=== PATIENT | female | born 1970 ===

== ENCOUNTER 2021-11-01 20:41 | Emergency (ER) | payer BC ==
[2021-11-01 21:16] VITALS: BP 148/77
[2021-11-01 21:43] LABS: Hematocrit 31.9 % (30.3-42.9); Hemoglobin 10.5 gm/dl (10.1-14.3); Mean Corpuscular HGB Conc 33 % (30-34); Mean Corpuscular Volume 80 fl (79-97); Platelet Count 303 K/mm3 (140-440); Red Blood Count 3.99 M/mm3 (3.65-5.03); Red Cell Distribution Width 16.6 % (13.2-15.2)
[2021-11-01 21:48] LABS: Basophils % (Auto) 0.2 % (0.0-1.8); Eosinophils % (Auto) 0.1 % (0.0-4.3); Lymphocytes # (Auto) 1.9 K/mm3 (1.2-5.4); Lymphocytes % (Auto) 21.1 % (13.4-35.0); Monocytes # (Auto) 0.7 K/mm3 (0.0-0.8); Monocytes % (Auto) 8.1 % (0.0-7.3)
[2021-11-01 22:13] LABS: Alanine Aminotransferase 13 units/L (7-56); Albumin 4.3 g/dL (3.9-5); BUN/Creatinine Ratio 20; Blood Urea Nitrogen 16 mg/dL (7-17); Calcium 9.4 mg/dL (8.4-10.2); Hemolysis Index 30
[2021-11-02 00:31] LABS: Bilirubin,Urine NEG (Negative); Blood,Urine NEG (Negative); Color,Urine Yellow (Yellow); Mucus,Urine FEW /HPF; Protein,Urine <15 mg/dL mg/dL (Negative); Urobilinogen,Urine < 2.0 mg/dL (<2.0)
[2021-11-02] MEDS ORDERED: KETOROLAC 30 MG/1 ML INJ IV ONE (03:24)
[2021-11-02] MEDS ORDERED: SODIUM CHLORIDE 0.9% 1000 ML 1,000 ML IV ONE (03:24)
[2021-11-02] MEDS ORDERED: ONDANSETRON 4 MG/2 ML INJ IV ONE (03:24)
--- NOTE | 2021-11-02 03:26 | Emergency Department Report ---
ED Abdominal Pain HPI - General Chief Complaint: Abdominal Pain Stated Complaint: LEFT SIDE PAIN Source: patient Mode of arrival: Ambulatory Limitations: No Limitations - Related Data Previous Rx's Medication Instructions Recorded Last Taken Type Ciprofloxacin HCl 500 mg PO BID 7 Days #14 tab 11/02/21 Unknown Rx Ketorolac [Toradol] 10 mg PO Q6H PRN #12 tab 11/02/21 Unknown Rx Tamsulosin [Flomax] 0.4 mg PO QDAY #12 cap 11/02/21 Unknown Rx Allergies Allergy/AdvReac Type Severity Reaction Status Date / Time No Known Allergies Allergy Unverified 11/01/21 21:12 ED Review of Systems ROS: Stated complaint: LEFT SIDE PAIN Other details as noted in HPI ED Past Medical Hx - Medications Home Medications: Home Medications Medication Instructions Recorded Confirmed Last Taken Type Ciprofloxacin HCl 500 mg PO BID 7 Days #14 tab 11/02/21 Unknown Rx Ketorolac [Toradol] 10 mg PO Q6H PRN #12 tab 11/02/21 Unknown Rx Tamsulosin [Flomax] 0.4 mg PO QDAY #12 cap 11/02/21 Unknown Rx ED Physical Exam - General Limitations: No Limitations ED Course Vital Signs 11/01/21 11/02/21 21:13 03:53 Temperature 98.4 F Pulse Rate 94 H Respiratory 18 16 Rate Blood Pressure 148/77 O2 Sat by Pulse 96 Oximetry ED Medical Decision Making - Lab Data Result diagrams: 11/01/21 21:27 11/01/21 21:27 Labs 11/01/21 11/01/21 11/02/21 21:27 21:27 00:20 WBC 9.4 RBC 3.99 Hgb 10.5 Hct 31.9 MCV 80 MCH 26 L MCHC 33 RDW 16.6 H Plt Count 303 Lymph % (Auto) 21.1 [place] % (Auto) 8.1 H Eos % (Auto) 0.1 Baso % (Auto) 0.2 Lymph # (Auto) 1.9 [place] # (Auto) 0.7 Eos # (Auto) 0.0 Baso # (Auto) 0.0 Seg Neutrophils % 70.5 H Seg Neutrophils # 6.3 Sodium 141 Potassium 4.1 Chloride 103.8 Carbon Dioxide 22 Anion Gap 19 BUN 16 Creatinine 0.8 Estimated GFR > 60 BUN/Creatinine Ratio 20 Glucose 109 H Calcium 9.4 Total Bilirubin 0.20 AST 16 ALT 13 Alkaline Phosphatase 97 Total Protein 7.2 Albumin 4.3 Albumin/Globulin Ratio 1.5 Lipase 18 Urine Color Yellow Urine Turbidity Slightly-cloudy Urine pH 5.0 Ur Specific [place] 1.020 Urine Protein <15 mg/dl Urine Glucose (UA) Neg Urine Ketones 20 Urine Blood Neg Urine Nitrite Neg Urine Bilirubin Neg Urine Urobilinogen < 2.0 Ur Leukocyte Esterase Mod Urine WBC (Auto) 11.0 H Urine RBC (Auto) 2.0 U Epithel Cells (Auto) 17.0 H Urine Mucus Few - Radiology Data Radiology results: report reviewed, image reviewed CT ABDOMEN AND PELVIS WITHOUT CONTRAST INDICATION / CLINICAL INFORMATION: r/o obstructive renal stone. TECHNIQUE: Axial CT images were obtained through the abdomen and pelvis without IV contrast. All CT scans at this location are performed using CT dose reduction for ALARA by means of automated exposure control. COMPARISON: None available. FINDINGS: LOWER CHEST: No significant abnormality LIVER: No significant abnormality GALLBLADDER/BILIARY TREE: Cholecystectomy. PANCREAS: No significant abnormality SPLEEN: No significant abnormality ADRENALS: No significant abnormality KIDNEYS: Punctate nonobstructive bilateral renal stones. No urolithiasis or hydronephrosis. URINARY BLADDER: Bladder is partially decompressed, though grossly unremarkable. REPRODUCTIVE ORGANS: No significant abnormality STOMACH / BOWEL: Small bowel is normal in caliber. Moderate stool in the colon. No evidence of localized bowel inflammation or obstruction. The appendix is normal in caliber. LYMPH NODES: No significant adenopathy. VASCULATURE: No significant abnormality. OTHER: No free air, free fluid, or focal fluid collection is identified. SKELETAL SYSTEM: No acute osseous findings. IMPRESSION: 1. No acute abnormality. 2. Small bilateral nonobstructive renal stones. No urolithiasis or hydronephrosis. 3. Moderate stool in the colon, may reflect constipation. No evidence of localized bowel inflammation or obstruction. Signer Name: Leti Kim MD Signed: 11/02/2021 4:55 AM Workstation Name: [id number] Transcribed By: MARLIN Dictated By: LETI KIM MD Electronically Authenticated By: LETI KIM MD Signed Date/Time: 11/02/21454 DD/ 1 TD/TT: - Medical Decision Making CT abdomen and pelvis 2.2 mm obstructive stone left kidney. With m some hydronephrosis., Chronic renal stone to right. This is a chronic problem for this patient plan DC to home with prescriptions. Patient is voiding at this time pain is resolved. Per patient patient will follow-up with urology in 2 to 3 days. Patient will continue to hydrate as directed. Patient will follow-up with her primary care doctor in 2 to 3 days. Patient will return to emergency department should symptoms worsen. Patient verbalized agreement and understanding of discharge plan. Patient DC'd home in stable condition at this time. Critical care attestation.: If time is entered above; I have spent that time in minutes in the direct care of this critically ill patient, excluding procedure time. ED Disposition Clinical Impression: Kidney stones Disposition: HOME / SELF CARE / HOMELESS Is pt being admited?: No Does the pt Need Aspirin: No Condition: Stable Instructions: Abdominal Pain (ED), Kidney Stones, Loce-np-Pldw, Dietary Guidelines to Help Prevent Kidney Stones Additional Instructions: Take medications as prescribed, follow-up with urology as directed. Follow-up with your regular doctor in 2 to 3 days. Return to emergency department should symptoms worsen. Prescriptions: Ciprofloxacin HCl 500 mg PO BID 7 Days #14 tab Tamsulosin [Flomax] 0.4 mg PO QDAY #12 cap Ketorolac [Toradol] 10 mg PO Q6H PRN #12 tab PRN Reason: Pain Referrals: MEENU GOYAL MD [Staff Physician] - 3-5 Days SUSAN GONZALES MD [Staff Physician] - 3-5 Days Forms: Work/School Release Form(ED) Time of Disposition: 05:40 Print Language: LITHUANIAN
--- NOTE | 2021-11-02 04:28 | Cat Scan Report ---
CT ABDOMEN AND PELVIS WITHOUT CONTRAST INDICATION / CLINICAL INFORMATION: flank pain r/o renal stone. TECHNIQUE: Axial CT images were obtained through the abdomen and pelvis without IV contrast. All CT scans at this location are performed using CT dose reduction for ALARA by means of automated exposure control. COMPARISON: None available. FINDINGS: Lung bases are clear. Liver, gallbladder, pancreas, spleen, adrenals, and right kidney demonstrate no significant abnormality. There is a 2.2 cm stone in the mid left ureter at the pelvic brim with moderate-severe left hydroneph rosis. Edematous appearance of the left kidney with left asymmetric perinephric stranding. A few punc dawn nonobstructive stones are present within the left lower pole calyces. Bladder is unremarkable. 3 .1 cm right adnexal cystic structure. Uterus appears unremarkable. Mildly enlarged left periaortic lymph nodes, measuring 1.1 cm in short axis (series 2 image 68). No o ther adenopathy is seen. No free air, free fluid, or focal collection. No acute osseous findings. IMPRESSION: 1. 2.2 cm obstructing stone at the mid left ureter with moderate to severe left hydronephrosis. 2. Additional punctate nonobstructive stones in the left lower pole calyces. 3. Nonspecific mildly enlarged left periaortic lymph node, may be reactive. Continued follow-up is stoddard ggested. 4. 3.1 cm right adnexal cystic structure. Recommend follow-up pelvic ultrasound in 6-12 months. Signer Name: Mikal Roe MD Signed: 11/02/2021 4:23 AM Workstation Name: [id number]
[2021-11-02] MEDS ORDERED: cefTRIAXone/NS 1 GM/50 ML 1 GM/50 ML BAG IV ONE (05:33)
== END 2021-11-02 06:40 | disposition home or self-care (01) ==
LOC: ED 20:41
DX: N20.0 Calculus of kidney (principal); Z79.899 Other long term (current) drug therapy
CPT/HCPCS: 36415; 74176; 80053; 81001; 83690; 85025; 87086; 96361; 96374; 96375; 99284; J1885; J2405; J7030